=== PATIENT | female | born 1980 | race Caucasian/White ===

== ENCOUNTER 2017-12-25 21:12 | Emergency (ER) | payer BC | END 2017-12-25 22:23 | disposition home or self-care (01) | LOC: D.ER 21:12 | DX: L03.031 Cellulitis of right toe (principal); F17.200 Nicotine dependence, unspecified, uncomplicated ==

== ENCOUNTER 2018-01-02 03:11 | Emergency (ER) | payer BC | END 2018-01-02 05:00 | disposition home or self-care (01) | LOC: D.ER 03:11 | DX: T25.231A Burn of second degree of right toe(s) (nail), initial encounter (principal); X08.8XXA Exposure to other specified smoke, fire and flames, initial encounter; Y93.89 Activity, other specified; Y92.019 Unspecified place in single-family (private) house as the place of occurrence of the external cause; L03.031 Cellulitis of right toe ==